=== PATIENT | female | born 1960 | race Caucasian/White ===

== ENCOUNTER → 2016-07-02 | Outpatient (CLI) | payer OTHER | LOC: MRI 08:30 | DX: M54.5 Low back pain (principal); G96.19 Other disorders of meninges, not elsewhere classified ==

== ENCOUNTER → 2016-08-06 | Outpatient (CLI) | payer OTHER ==
[~2016-08-06] VITALS: Ht 162.6 cm; Wt 64.9 kg
[~2016-08-06] MED LIST: ALLEGRA ALLERG180 MG PO; AMITIZA 24 MCG24 MC1 PO; AZELASTINE137 MCG/0. NS; LYRICA150 MG PO; NEXIUM40 MG PO; TRAMADOL 50 MG50 MG PO
[2016-08-06 13:53] VITALS: BP 124/76
== END ==
LOC: PAIN 00:22
DX: M54.89 Other dorsalgia (principal); M79.606 Pain in leg, unspecified; Z87.891 Personal history of nicotine dependence; F32.89 Other specified depressive episodes; Z90.710 Acquired absence of both cervix and uterus; Z98.890 Other specified postprocedural states; Z79.899 Other long term (current) drug therapy

== ENCOUNTER → 2016-08-20 | Outpatient (CLI) | payer OTHER ==
[~2016-08-20] VITALS: Ht 162.6 cm; Wt 64.9 kg
--- NOTE | ~2016-08-20 | HPC ---
Formerly [facility] [place] [address] PAIN MANAGEMENT CONSULTATION Name: KRISHNANJIM Room #: REG JACOBO Hai#: [id number] Admission: 08/20/16 Attend Phys: Keshav Thapa MD Discharge: Date of : 60 Report #: [id number] THIS REPORT FOR: //name// CC: Tom Maradiaga DATE OF SERVICE: 08/20/2016 CHIEF COMPLAINT: Pain in the leg has improved. FOLLOWUP HISTORY: The patient is a 56-year-old female who has been seen in the pain clinic because of lumbar radiculopathy. She underwent an epidural steroid injection in the L5-S1 distribution at the last visit. She has noted pain and discomfort in the L5-S1 distribution, has improved. She feels now that the pain is more in the L4-L5 distribution on the left side. She would like to proceed with another epidural steroid injection. She has had no complication from the procedure. She feels that her pain has at least 50% improved. She still has pain down her legs bilaterally and involvement in her toes. Left side worse than right. PHYSICAL EXAMINATION: Blood pressure 145/82, pulse 72, respiratory rate 20, room air saturation is 100%. Height 5 feet 4 inches, weight 162 pounds, BMI is 24. The patient has pain and discomfort radiating down into the left leg greater than right with numbness and tingling in the L4-L5 distribution involving toes on the left side. IMPRESSION: Gastrointestinal problems, the patient takes Nexium. Sinus problems, the patient takes Holley. RECOMMENDATIONS: We discussed treatment options with the patient. Risks and benefits of an epidural steroid injection were again reviewed. Possible complications of the procedure were discussed. The patient has received greater than 50% improvement after the last injection and would like to proceed with another injection today. By: [id number] Keshav Thapa MD /nt
--- NOTE | ~2016-08-20 | P ---
[facility] [place] [address] PROCEDURE REPORT Name: LUBNA KRISHNANHENRY ESPOSITO Room #: REG JACOBO Valles#: [id number] Admission: 08/20/16 Attend Phys: Keshav Thapa MD Discharge: Date of : 60 Report #: [id number] THIS REPORT FOR: //name// CC: Tom Maradiaga DATE OF SERVICE: 08/20/2016 PROCEDURE NOTE: The patient was placed in the prone position. Fluoroscopy was used to identify the L4-L5 interspace. This area had been sterilely prepped with Betadine and infiltrated with 0.25% bupivacaine. Total of 80 mg Depo-Medrol, 40 mg triamcinolone and 2 mL of 0.25% bupivacaine was injected. The patient's pain decreased from 8 to 0 at the time of discharge. She will follow up in the future as needed. We would like to thank you for letting us participate in her care. We hope she continues to improve. By: [id number] Keshav Thapa MD /nt
[2016-08-20 09:04] VITALS: BP 145/82
== END ==
LOC: PAIN 06:56
DX: M54.16 Radiculopathy, lumbar region (principal); Z87.891 Personal history of nicotine dependence

== ENCOUNTER → 2016-10-15 | Outpatient (CLI) | payer OTHER ==
[~2016-10-15] VITALS: Ht 162.6 cm; Wt 64.4 kg
--- NOTE | ~2016-10-15 | HPC ---
[facility] [place] [address] PAIN MANAGEMENT CONSULTATION Name: KRISHNANJIM Room #: REG JACOBO Hai#: [id number] Admission: 10/15/16 Attend Phys: Keshav Thapa MD Discharge: Date of : 60 Report #: [id number] THIS REPORT FOR: //name// CC: Tom Maradiaga DATE OF SERVICE: 10/15/2016 CHIEF COMPLAINT: Pain has returned in the right leg with some weakness and numbness. FOLLOWUP HISTORY: The patient is a 56-year-old female who has been seen in the pain clinic because of lumbar radiculopathy. She is experiencing more pain in the right leg. Pain radiates down into the posterior portion of her leg/L5-S1 distribution. She notes that she continues to have some discomfort in her legs bilaterally with weakness and numbness in them. She also has some right hip discomfort. She rates her pain as a 7/10. Pain is exacerbated by standing and usually gets progressively worse as the day goes on. It improves somewhat with rest. She has had no complications from the last 2 epidural steroid injections and would like to proceed with another. PHYSICAL EXAMINATION: Blood pressure is 108/73, pulse 66, respiratory rate 14, room air saturations 100%, height 5 feet 4 inches tall, weight 142 pounds, and BMI is 24. The patient has pain and discomfort in the lower portion of her back with pain radiating down into the posterior portion of her right hip, leg, buttocks in the L5/S1 distribution. IMPRESSION: Lumbar radiculopathy. RECOMMENDATIONS: We discussed treatment options with the patient. Risks and benefits of an epidural steroid injection were again reviewed. Possible complications were explained. The patient elects to proceed. PROCEDURE NOTE: The patient was placed in the prone position. Fluoroscopy was used to identify the L5-S1 distribution on the right. A 0.25% bupivacaine was infiltrated into this area. A 17-gauge Tuohy with loss of resistance technique was used to gain access to the epidural space. There was no CSF, heme, or paresthesia. Total of 80 mg Depo-Medrol, 40 mg triamcinolone and 2 mL of 0.25% bupivacaine was injected. The patient tolerated the procedure well. There were no complications. We would like to thank you for letting us participate in her care. We hope she continues to improve. By: [id number] Keshav Thapa MD /issa
[2016-10-15 10:08] VITALS: BP 108/73
== END | disposition home or self-care (01) ==
LOC: PAIN 07:13
DX: M54.16 Radiculopathy, lumbar region (principal); Z87.891 Personal history of nicotine dependence

== ENCOUNTER → 2017-03-25 | Outpatient (CLI) | payer OTHER | LOC: MRI 13:53 | DX: G45.9 Transient cerebral ischemic attack, unspecified (principal); H54.7 Unspecified visual loss ==

== ENCOUNTER → 2017-08-26 | Outpatient (CLI) | payer OTHER | LOC: RAD 10:16 | DX: Z12.31 Encounter for screening mammogram for malignant neoplasm of breast (principal) ==

== ENCOUNTER → 2018-02-17 | Outpatient (CLI) | payer OTHER ==
[~2018-02-17] VITALS: Ht 162.6 cm; Wt 78.5 kg
[~2018-02-17] MED LIST changes: +CYMBALTA60 MG PO; +LIVALO2 MG PO; +TRAZODONE HCL50 MG PO
[2018-02-17 10:03] VITALS: BP 123/82
== END ==
LOC: PAIN 09:33 → CAT 09:33 → PAIN 14:25
DX: R10.2 Pelvic and perineal pain (principal); M54.5 Low back pain; R14.0 Abdominal distension (gaseous); G89.29 Other chronic pain; M79.604 Pain in right leg; M79.605 Pain in left leg; R53.1 Weakness; Z79.899 Other long term (current) drug therapy

== ENCOUNTER → 2018-03-24 | Outpatient (CLI) | payer OTHER ==
[~2018-03-24] VITALS: Ht 162.6 cm; Wt 80.9 kg
--- NOTE | ~2018-03-24 | HPC ---
[facility] [place] [address] PAIN MANAGEMENT CONSULTATION Name: JMI KRISHNAN Room #: REG JACOBO AbebaJakiMounika#: [id number] Admission: 03/24/18 Attend Phys: Keshav Thapa MD Discharge: Date of : 60 Report #: [id number] THIS REPORT FOR: //name// CC: Jayshree Thapa DATE OF SERVICE: 03/24/2018 CHIEF COMPLAINT: Here for another epidural injection. I have had pain going down into my leg, on the left side. HISTORY: The patient is a 57-year-old female who has been seen in the pain clinic because of lumbar radiculopathy. She has undergone epidural steroid injections and gleaned benefits from these. She has again noticed some pain in her left leg with numbness, weakness and sensory changes. She has undergone epidural steroid injections and gleaned greater than 50% improvement from them. She rates her pain today as an 8/10. She does quite a bit of walking. At the end of the day she experiences quite a bit of pain and discomfort. Pain is not so problematic when she is sedentary. Notes that prolonged sitting can be exacerbating to the pain as well. She has tried Lyrica, felt that medication was "rough on me." Has tried Cymbalta and gabapentin. ALLERGIES: CODEINE, HYDROCODONE, OXYCODONE. PAIN CLINIC ASSESSMENT/PQRS: 1. The patient is not being treated for osteoarthritis or rheumatoid arthritis. 2. Height 5 feet 4 inches, weight 178 pounds, BMI is 30. 3. Vital signs: Blood pressure 113/71, pulse 74, respiratory rate 18, room air saturation 99%. 4. Pain intensity 10/14. 5. Fall risk. The patient has not fallen in the last 3 months. 6. Blood thinner. The patient is not on a blood thinning medication. 7. Hypertension. The patient has not been treated for hypertension. 8. Opioids greater than 6 weeks. The patient is not being treated with opioid medication on a regular basis. 9. Risk assessment tool for opioid flow. 10. Functional assessment . 11. Recreational drug use. The patient denies use of recreational drugs. 12. Tobacco: The patient is a former smoker. 13. Alcohol: The patient denies frequent use of alcoholic beverages. PHYSICAL EXAMINATION: GENERAL: The patient is a well-developed, well-nourished white female. Appears her stated age. She is alert and oriented x3. Her affect is appropriate. Speech is slow. HEAD, EYES, EARS, NOSE, AND THROAT: Normocephalic, atraumatic. Extraocular eye [address] [address] PAIN MANAGEMENT CONSULTATION Name: JIM KRISHNAN [facility] Room #: REG [facility] M.R.#: [id number] Admission: 03/24/18 Attend Phys: Keshav Thapa MD Discharge: Date of : 60 Report #: [id number] muscles intact. Sclerae nonicteric. NECK: Without adenopathy or JVD. HEART: Regular rate. S1, S2. ABDOMEN: Nontender. Bowel sounds present. CHEST: Clear to auscultation. EXTREMITIES: Upper extremity muscle straight judged to be 5/5 in the major muscle groups in the upper extremity. The patient has some pain and discomfort in the lower portion of her back. The patient without significant scoliosis, kyphosis or lordosis. Has some pain and discomfort that is radiating down the posterior portion of her left leg in the L5-S1 dermatomal distribution. IMPRESSION: 1. Gastroesophageal reflux history. 2. Depression. 3. Allergies. RECOMMENDATIONS: We discussed treatment options with the patient. Risks and benefits of an epidural steroid injection were again reviewed. They include but are not limited to infection, worsening pain, no improvement in pain, bleeding, nerve damage, paralysis and the patient elects to proceed. PROCEDURE NOTE: The patient was taken to the procedure area. She was assisted in getting on the examination table. Her back was sterilely prepped with a Betadine solution. Anterior, posterior viewing using fluoroscopy were implemented. The patient's back was sterilely prepped in the L5-S1 dermatomal distribution. A midline left median approach was undertaken. A total of 80 mg Depo-Medrol, 40 mg of triamcinolone and 2 mL of 0.25% bupivacaine was injected. The patient tolerated the procedure well. There were no complications. The patient continues to have pain and discomfort in the low back area. She has not taken a nonsteroidal anti-inflammatory medication because of the gastroesophageal problems. She has tried ibuprofen, Aleve, aspirin, and still has problems with these medications because they upset her GI tract. The patient will be given a script for Celebrex. Hopefully, she will find these medications helpful, would help combat the chronic pain and discomfort that she is having so she does not have to use opioid medications. We would like to thank you for letting us to participate in her care. We hope she continues to improve. By: [id number] Keshav Thapa MD /FELICIA
[2018-03-24 12:53] VITALS: BP 113/71
--- NOTE | 2018-03-24 13:01 | NUR ---
Pain Clinic Assessment: 1. History of Osteoarthritis: NONE History of Rheumatoid Arthritis: NONE 2. Height: 5 ft. 4 in. 162.6 cm. Weight: 178.4 lb. oz. 80.922 kg. Patient's BMI: 30.6 3. Vital Signs: BP: 113/71 Pulse: 74 Resp: 18 Temp: 02 Sat: 99 ECG Mon: 4. Pain Intensity: 8 5. Fall Risk: Dizziness: N Needs help standing or walking: N Fallen in the last 3 months: N Fall risk comments: 6. Patient on Blood Thinner: None 7. History of Hypertension: N 8. Opioid Therapy greater than 6 weeks: N Opiate Contract Signed: 9. Risk Assessment Tool Provided: 10. Functional Assessment Tool: 49 11. Recreational Drug Use: Never Drug Type: Tobacco Use: Former Smoker Tobacco Type: Amount or Packs/day: How Many Years: Alcohol Use: No Frequency: Quant:
== END | disposition home or self-care (01) ==
LOC: PAIN 07:04
DX: M54.16 Radiculopathy, lumbar region (principal); G89.29 Other chronic pain; Z87.891 Personal history of nicotine dependence; Z88.8 Allergy status to other drugs, medicaments and biological substances; Z79.899 Other long term (current) drug therapy

== ENCOUNTER → 2018-04-17 | Outpatient (CLI) | payer OTHER ==
[~2018-04-17] VITALS: Ht 162.6 cm; Wt 77.1 kg
[~2018-04-17] MED LIST changes: +GENTEAL TEARS 015 ML OPHTHALMIC; +HAIR, SKIN & N1 EAC2 PO; +MAGOX 400400 MG PO; +POTASSIUM CITR500 GM PO
--- NOTE | 2018-04-18 17:12 | PATH ---
[facility] [address] [place] [address] PATHOLOGY RPT PROCEDURE Name: KRISHNANLEIGH ANN Room #: REG JACOBO Ebonie.#: [id number] Admission: 04/17/18 Date of : 60 Discharge: Report #: [id number] Path Case #: [id number] [facility] Accession Number: [id number] . 01 Material submitted: . PART A: SMALL BOWEL BIOPSIES R/O CELIAC PART B: RANDOM GASTRIC BIOPSIES R/O H PYLORI PART C: RANDOM RIGHT COLON BIOPSIES R/O MICROSCOPIC AND INFECTIOUS COLITIS PART D: RANDOM LEFT COLON BIOPSIES R/O MICROSCOPIC AND INFECTION COLITIS . 01 Clinical history: . Pre-OP DX: Abdominal pain, diarrhea, bloating Post-OP DX: Nodular gastric mucosa, diverticulosis . 02 Diagnosis: A. Small bowel mucosa, rule out celiac disease, endoscopic biopsy: - Mild nonspecific acute and chronic inflammation. - Negative for villous blunting or increase in intraepithelial lymphocytes. . B. Gastric mucosa, random gastric rule out H. pylori, endoscopic biopsy: - Mild reactive gastropathy. - Negative for intestinal metaplasia or atrophy. - Negative for Helicobacter pylori (properly controlled immunohistochemical stain performed). . C. Large intestine mucosa, right colon rule out microscopic colitis, endoscopic biopsy: - No significant diagnostic abnormalities present. - Negative for active colitis, microscopic colitis, or dysplasia. . D. Large intestine mucosa, left colon rule out microscopic colitis, endoscopic biopsy: - No significant diagnostic abnormalities present. - Negative for active colitis, microscopic colitis, or dysplasia. . 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 02 Comment: Parts C and D: Sections of colon biopsy tissues show crypts at regular intervals and no increase in cellularity of lamina propria. There are no granulomas. The collagen layer underneath the epithelium is not thickened. There is no distortion in crypt architecture as well. There is no evidence of dysplasia. 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 02 [place] [address] PATHOLOGY RPT PROCEDURE Name: LEIGH ANN KRISHNAN VAIBHAV Room #: REG JACOBO Valles#: [id number] Admission: 04/17/18 Date of : 60 Discharge: Report #: [id number] Path Case #: [id number] Electronically signed: . Celi Tran MD, Pathologist NPI- [id number] . 01 Gross description: . A. Received in formalin labeled "Krishnan, Leigh Ann, small bowel biopsies, rule out celiac," are 6 segments of ryan soft tissue measuring 1.0 x 0.6 x 0.2 cm in aggregate dimensions and ranging from 0.3 to 0.4 cm in maximum dimension. The specimen is submitted entirely in cassette A1. . B. Received in formalin labeled "Krishnan, Leigh Ann, random gastric biopsies, rule out H. pylori," are 3 segments of ryan soft tissue measuring 1.1 x 0.5 x 0.3 cm in aggregate dimensions and ranging from 0.3 to 0.6 cm in maximum dimension. The specimen is submitted entirely in cassette B1. . C. Received in formalin labeled "Krishnan, Leigh Ann, random R colon biopsies, rule out microscopic colitis and infectious colitis," are 7 segments of ryan soft tissue measuring 1.5 x 0.9 x 0.2 cm in aggregate dimensions and ranging from 0.2 to 0.5 cm in maximum dimension. The specimen is submitted entirely in cassette C1. . D. Received in formalin labeled "Krishnan, Leigh Ann, random L colon biopsies, rule out microscopic colitis and infectious colitis," are 7 segments of ryan soft tissue measuring 1.8 x 0.8 x 0.2 cm in aggregate dimensions and ranging from 0.3 to 0.6 cm in maximum dimension. The specimen is submitted entirely in cassette D1. (TSD; 04/17/2018) TOB/TOB . 02 Pathologist provided ICD-10: K52.9, K31.9, R10.9, R19.7, R14.0 . 02 CPT . 477334, 040591, [id number], 369270 Specimen Comment: A courtesy copy of this report has been sent to Specimen Comment: [phone], . Specimen Comment: Report sent to / DR NARANJO Performed at: [address], [place], [place] [id number] MD Alexander Goodwin MD Phone: [phone] Performed at: [address] [id number] MD Celi Tran MD Phone: [phone]
== END | disposition home or self-care (01) ==
LOC: GI 08:10
DX: K52.9 Noninfective gastroenteritis and colitis, unspecified (principal); K57.30 Diverticulosis of large intestine without perforation or abscess without bleeding; K31.89 Other diseases of stomach and duodenum; E78.5 Hyperlipidemia, unspecified; F17.210 Nicotine dependence, cigarettes, uncomplicated; K21.9 Gastro-esophageal reflux disease without esophagitis; F32.9 Major depressive disorder, single episode, unspecified; Z90.49 Acquired absence of other specified parts of digestive tract; Z90.710 Acquired absence of both cervix and uterus; Z98.890 Other specified postprocedural states; Z86.73 Personal history of transient ischemic attack (TIA), and cerebral infarction without residual deficits
CPT/HCPCS: 62110; 62900

== ENCOUNTER → 2018-05-12 | Outpatient (CLI) | payer OTHER | LOC: CAT 04-28 11:47 | DX: I67.1 Cerebral aneurysm, nonruptured (principal) ==

== ENCOUNTER → 2018-08-04 | Outpatient (CLI) | payer OTHER ==
[~2018-08-04] VITALS: Ht 162.6 cm; Wt 79.7 kg
[~2018-08-04] MED LIST changes: +ESZOPICLONE2 MG PO; +PHENTERMINE H37.5 M1 PO
[2018-08-04 10:26] VITALS: BP 141/86
--- NOTE | 2018-08-04 10:42 | NUR ---
Pain Clinic Assessment: 1. History of Osteoarthritis: NONE History of Rheumatoid Arthritis: NONE 2. Height: 5 ft. 4 in. 162.6 cm. Weight: 175.8 lb. oz. 79.742 kg. Patient's BMI: 30.2 3. Vital Signs: BP: 141/86 Pulse: 74 Resp: 16 Temp: 02 Sat: 100 ECG Mon: 4. Pain Intensity: 8 5. Fall Risk: Dizziness: N Needs help standing or walking: N Fallen in the last 3 months: N Fall risk comments: 6. Patient on Blood Thinner: None 7. History of Hypertension: N 8. Opioid Therapy greater than 6 weeks: N Opiate Contract Signed: 9. Risk Assessment Tool Provided: low-1 10. Functional Assessment Tool: 11. Recreational Drug Use: Never Drug Type: Tobacco Use: Former Smoker Tobacco Type: Amount or Packs/day: How Many Years: Alcohol Use: Yes Frequency: Quant:
--- NOTE | 2018-08-09 08:16 | HPC ---
[facility] [address] [place] [address] PAIN MANAGEMENT CONSULTATION Name: JIM KRISHNAN Room #: REG JACOBO Hai#: [id number] Admission: 08/04/18 ������������������ Attend Phys: Keshav Thapa MD Discharge: ������������������ Date of : 60 Report #: [id number] THIS REPORT FOR: //name// CC: Jayshree Thapa DATE OF SERVICE: 08/04/2018 CHIEF COMPLAINT: Return of back pain which is good for a number of months. HISTORY: The patient is a 58-year-old female who has been seen in the pain clinic because of lumbar radiculopathy. She has undergone epidural steroid injections and gleaned benefits from these. She is experiencing pain, which was improved over the last 5-6 months. She has noticed a worsening of pain, which has recurred. It is radiating down into her leg. She rates it as 8/10 at this juncture. It involves both legs. Left knee is problematic, has some discomfort in the area of the hips. This is in the L5-S1 dermatomal distribution with sensory changes, numbness, tingling and decreased muscle strength. Notes that the pain is worse with prolonged standing as necessary. Notes that the pain improves with rest. She has tried heat as well as lying down. She does have quite a bit of standing in her job. She has tried other medications to help with the pain, Lyrica was described as "rough on me." She has also tried Cymbalta and gabapentin. She feels that the injection was beneficial and would like to proceed with another epidural injection in that she has gleaned significant amounts of pain relief after the last injection. ALLERGIES: CODEINE, HYDROCODONE, OXYCODONE. PAIN CLINIC ASSESSMENT/PQRS: 1. The patient is not being treated for osteoarthritis or rheumatoid arthritis. 2. Height 5 feet 4 inches, weight 175 pounds, BMI is 30.2. 3. Vital Signs: Blood pressure 141/86, pulse 74, respiratory rate 16, room air saturation 100%. 4. Pain intensity 10/14. 5. Fall history: The patient has not fallen in the last 3 months. 6. Blood thinner. The patient is not on a blood thinning medication. 7. Hypertension. The patient is not being treated for hypertension. 8. Opioids greater than 6 weeks. The patient is not on current regimen of opioids. 9. Risk assessment tool, low for opioid use. 10. Functional assessment tool 42/70. 11. Recreational drug use. The patient denies. 12. Tobacco: The patient denies use of tobacco. She is a former smoker. 13. Alcohol: The patient occasionally drinks alcoholic beverages. [facility] [address] [place] [address] PAIN MANAGEMENT CONSULTATION Name: JIM KRISHNAN Room #: REG JACOBO Valles#: [id number] Admission: 08/04/18 ������������������ Attend Phys: Keshav Thapa MD Discharge: ������������������ Date of : 60 Report #: [id number] PHYSICAL EXAMINATION: GENERAL: The patient is a well-developed, well-nourished white female, appears her stated age. She is alert and oriented x 3. Her affect is appropriate. Speech is fluent. HEENT: Normocephalic, atraumatic. Extraocular eye muscles intact. Sclerae nonicteric. Mucous membranes are moist. NECK: Without adenopathy or JVD. HEART: Regular rate. S1, S2. ABDOMEN: Nontender. Bowel sounds present. CHEST: Clear to auscultation. EXTREMITIES: Upper extremity muscle strength is judged to be 5/5 for the major muscle groups in the upper extremity. The patient without significant scoliosis, kyphosis or lordosis. Has pain and discomfort, which is radiating down the posterior portion of her left leg and down into the right leg with numbness, tingling and sensory changes at the L5-S1 dermatomal distribution. IMPRESSION: 1. History of gastroesophageal reflux. 2. Depression. RECOMMENDATIONS: We discussed treatment options with the patient. The patient was provided with an epidural steroid injection in March. Things have worked out reasonably well. Over the last few weeks, she has noticed an increase in her pain. She has made it more difficult for her to perform activities of daily living such as working and the patient would like to proceed with another injection. She has had no complications. She has had no back surgeries. She has returned with a hope of undergoing an epidural steroid injection. We explained to the patient that we needed to have precertification prior to an injection. She acknowledges understanding the requirement for precertification. She will return to the pain clinic at which time she will undergo an epidural steroid injection after she has been provided precertification to do so. We would like to thank you for letting us participate in her care. We hope she continues to improve. ��������������������������������������������� <ELECTRONICALLY SIGNED> ���������������������������������������� By: Keshav Thapa MD ��������������������������������������������� 08/09/18 0816 [id number] [id number] Keshav Thapa MD /issa
== END ==
LOC: PAIN 06:49
DX: M54.5 Low back pain (principal); K21.9 Gastro-esophageal reflux disease without esophagitis; F32.9 Major depressive disorder, single episode, unspecified

== ENCOUNTER → 2018-09-15 | Outpatient (CLI) | payer OTHER ==
[~2018-09-15] VITALS: Ht 162.6 cm; Wt 83.4 kg
[~2018-09-15] MED LIST changes: +BUPROPION HCL150 M1 PO; +CELEBREX 200 M200 M1 PO
--- NOTE | ~2018-09-15 | HPC ---
[facility] [address] [place] [address] PAIN MANAGEMENT CONSULTATION Name: JIM KRISHNAN Room #: REG JACOBO Hai#: [id number] Admission: 09/15/18 ������������������ Attend Phys: Keshav Thapa MD Discharge: ������������������ Date of : 60 Report #: [id number] THIS REPORT FOR: //name// CC: Jayshree Thapa DATE OF SERVICE: 09/15/2018 CHIEF COMPLAINT: Here for an epidural injection. HISTORY: The patient is a 58-year-old female who has been followed in the pain clinic because of lumbar radiculopathy. Epidural steroid injections have been beneficial in the past. At this juncture, she has noticed that her pain has increased. She has returned today with the hopes of undergoing an epidural steroid injection to help decrease her pain. She rates it as a 6/10. Also, has some pain in her left knee. She had an injection in this about 2 weeks ago and has noted some improvement. Overall, things are going reasonably well. She would like to proceed with another epidural steroid injection. Notes that her pain can be problematic because of the prolonged amount of standing, which she does on her job. ALLERGIES: CODEINE, HYDROCODONE, OXYCODONE. PAIN CLINIC ASSESSMENT AND PQRS. 1. The patient is not being treated for osteoarthritis or rheumatoid arthritis. 2. Height 5 feet 4 inches, weight 183 pounds, BMI is 31.5. 3. Vital signs: Blood pressure 150/88, pulse 67, respiratory rate 16, room air saturation 100%. 4. Pain intensity 10. 5. Fall history: The patient has not fallen in the last 3 months. 6. Blood thinner. The patient is not on a blood thinning medication. 7. Hypertension. The patient is not being treated for hypertension. 8. Opioids greater than 6 weeks. 9. Risk assessment tool, low for opioid use. 10. Functional assessment tool 42/70. 11. Recreational drug use. The patient denies. 12. Tobacco: The patient is a former smoker. 13. Alcohol. The patient drinks 2 alcoholic beverages weekly. PHYSICAL EXAMINATION: GENERAL: The patient is a well-developed, well-nourished white female. Appears her stated age. She is alert and oriented x 3. Affect is appropriate. Speech is fluent. HEENT: Normocephalic, atraumatic. Extraocular eye muscles intact. Sclerae nonicteric. Mucous membranes are moist. NECK: Without adenopathy or JVD. [facility] [address] [place] [address] PAIN MANAGEMENT CONSULTATION Name: JIM KRISHNAN [facility] Room #: REG [facility]#: [id number] Admission: 09/15/18 ������������������ Attend Phys: Keshav Thapa MD Discharge: ������������������ Date of : 60 Report #: [id number] LUNGS: Clear to auscultation. EXTREMITIES: Upper extremity muscle strength judged to be 5/5 for the major muscle groups in the upper extremity. The patient is without significant scoliosis, kyphosis, or lordosis. The patient has some discomfort with pain that is radiating down the posterior portion of her leg in the L5-S1 distribution. IMPRESSION: 1. History of gastroesophageal reflux. 2. Depression. RECOMMENDATIONS: We discussed treatment options with the patient. At this juncture, she would like to proceed with an epidural injection. Risks and benefits of the procedure were discussed. They include but are not limited to infection, increased muscle soreness, headache, bleeding, worsening of pain, spinal headache. The patient is going to have a pool green party at her house. She asks whether or not she should get in the pool. We have advised her not to get in the pool today. There is a possibility of infection. She would like to proceed with an injection. The patient was taken to the procedure area. She was then assisted in getting on the examination table. Her back was sterilely prepped with a Betadine solution. Fluoroscopy using anterior, posterior as well as lateral viewing were implemented. A 25-gauge needle was then used to infiltrate the L5-S1 area. This area was numbed. A 17-gauge Tuohy with loss of resistance technique was used to gain access to the epidural space using a left paramedian approach. Aspiration was negative. Total of 80 mg Depo-Medrol, 40 mg triamcinolone and 2 mL of 0.25% bupivacaine was injected. A total of 7 seconds fluoroscopy time was used. The patient's pain decreased from 6 to 0 at the time of discharge. She will follow up in the future as needed. We would like to thank you for letting us participate in her care. We hope she continues to improve. ��������������������������������������������� ���������������������������������������� By: ��������������������������������������������� [id number] eKshav Thapa MD /issa
[2018-09-15 10:42] VITALS: BP 150/88
--- NOTE | 2018-09-15 10:58 | NUR ---
Pain Clinic Assessment: 1. History of Osteoarthritis: NONE History of Rheumatoid Arthritis: NONE 2. Height: 5 ft. 4 in. 162.6 cm. Weight: 183.8 lb. oz. 83.371 kg. Patient's BMI: 31.5 3. Vital Signs: BP: 150/88 Pulse: 67 Resp: 16 Temp: 02 Sat: 100 ECG Mon: 4. Pain Intensity: 6 5. Fall Risk: Dizziness: N Needs help standing or walking: N Fallen in the last 3 months: N Fall risk comments: 6. Patient on Blood Thinner: None 7. History of Hypertension: N 8. Opioid Therapy greater than 6 weeks: N Opiate Contract Signed: 9. Risk Assessment Tool Provided: low-1 10. Functional Assessment Tool: 11. Recreational Drug Use: Never Drug Type: Tobacco Use: Former Smoker Tobacco Type: Amount or Packs/day: How Many Years: Alcohol Use: Yes Frequency: Weekly Quant: 2
== END | disposition home or self-care (01) ==
LOC: PAIN 06:43
DX: M54.16 Radiculopathy, lumbar region (principal); G89.29 Other chronic pain; K21.9 Gastro-esophageal reflux disease without esophagitis; F32.9 Major depressive disorder, single episode, unspecified; Z87.891 Personal history of nicotine dependence; Z88.6 Allergy status to analgesic agent; Z88.8 Allergy status to other drugs, medicaments and biological substances; Z98.890 Other specified postprocedural states; Z79.899 Other long term (current) drug therapy

== ENCOUNTER → 2018-12-01 | Outpatient (CLI) | payer OTHER ==
[~2018-12-01] VITALS: Ht 162.6 cm; Wt 83.6 kg
[2018-12-01 11:00] VITALS: BP 163/79
--- NOTE | 2018-12-01 11:05 | NUR ---
Pain Clinic Assessment: 1. History of Osteoarthritis: NONE History of Rheumatoid Arthritis: NONE 2. Height: 5 ft. 4 in. 162.6 cm. Weight: 184.4 lb. oz. 83.643 kg. Patient's BMI: 31.6 3. Vital Signs: BP: 163/79 Pulse: 82 Resp: 18 Temp: 02 Sat: 99 ECG Mon: 4. Pain Intensity: 10 5. Fall Risk: Dizziness: N Needs help standing or walking: N Fallen in the last 3 months: N Fall risk comments: 6. Patient on Blood Thinner: None 7. History of Hypertension: N 8. Opioid Therapy greater than 6 weeks: N Opiate Contract Signed: 9. Risk Assessment Tool Provided: low-1 10. Functional Assessment Tool: 42/ 11. Recreational Drug Use: Never Drug Type: Tobacco Use: Former Smoker Tobacco Type: Amount or Packs/day: How Many Years: Alcohol Use: Yes Frequency: Monthly Quant: 2
--- NOTE | 2018-12-15 08:26 | HPC ---
[facility] [place] [address] PAIN MANAGEMENT CONSULTATION Name: JIM KRISHNAN Room #: REG JACOBO Hai#: [id number] Admission: 12/01/18 Attend Phys: Keshav Thapa MD Discharge: Date of : 60 Report #: [id number] THIS REPORT FOR: //name// CC: Jayshree Thapa DATE OF SERVICE: 12/01/2018 CHIEF COMPLAINT: "The last epidural was helpful, but now the pain has returned over the last few weeks. I would like to get another injection." HISTORY: The patient is a 58-year-old female who has been followed in the pain clinic because of lumbar radiculopathy. Epidural injections in the past have proven beneficial. She has noted over the last few weeks some increased pain and discomfort. It involves the lower portion of her back and radiates down into her legs with numbness and tingling. Pain has become quite problematic at this juncture. She rates it as a 10/10. She notes that the pain is exacerbated when she is standing. She does do quite a bit of standing at her job. Notes that the pain improves with rest, use of heat as well as when lying down. Medications could be beneficial as well. ALLERGIES: CODEINE, HYDROCODONE/OXYCODONE. CURRENT MEDICATIONS: Bupropion SR150 mg, Celebrex 200 mg 2 times daily, eszopiclone 2 mg at bedtime, phentermine 37.5 mg, ophthalmic drops b.i.d., magnesium 400 mg, potassium 500 granules, Cymbalta 60 mg, azelastine 137 mcg spray nasal p.r.n. allergies, esomeprazole 40 mg/Nexium 40 mg, Holley 180 mg and tramadol 50 mg p.r.n. PAIN CLINIC ASSESSMENT AND PQRS: 1. The patient is not being treated for osteoarthritis or rheumatoid arthritis. 2. Height 5 feet 4 inches, weight 184 pounds, BMI is 31.6. 3. Vital signs: Blood pressure 163/79, pulse 82, respiratory rate 18, room air saturation 99. 4. Pain intensity 10/10. 5. Fall history: The patient has not fallen in the last 3 months. 6. Blood thinner. The patient is not on a blood thinning medication. 7. Hypertension. The patient is not being treated for hypertension. 8. Opioids greater than 6 weeks. The patient is not on opioid regimen. 9. Risk assessment tool, low for opioids. 10. Functional assessment tool 42/70. 11. Recreational drug use: The patient denies. 12. Tobacco: The patient is a former smoker. 13. Alcohol: The patient occasionally drinks about 2 alcoholic beverages monthly. [address] [address] PAIN MANAGEMENT CONSULTATION Name: JIM KRISHNAN [facility] [id number] Admission: 12/01/18 Attend Phys: Keshav Thapa MD Discharge: Date of : 60 Report #: [id number] PHYSICAL EXAMINATION: GENERAL: The patient is a well-developed, well-nourished white female. Appears her stated age. She is alert and oriented x 3. Her affect is appropriate. Speech is fluent. HEENT: Normocephalic, atraumatic. Extraocular eye muscles intact. Sclerae nonicteric. Mucous membranes are moist. NECK: Without adenopathy. LUNGS: Clear to auscultation. EXTREMITIES: Upper extremity muscle strength judged to be 5/5 for the major muscle groups in the upper extremity. The patient is without significant scoliosis, kyphosis or lordosis. The patient has some discomfort and pain that radiates down the posterior portion of her legs and the left and right in the L5-S1 dermatomal distribution. IMPRESSION: 1. History of gastroesophageal reflux. 2. Depression. 3. History of lumbar radiculopathy. RECOMMENDATIONS: We discussed treatment options with the patient. Risks and benefits of an epidural steroid injection were again reviewed. The patient has had this before. She is aware that the possible complication of the procedure could include but are not limited to infection, worsening of pain, no improvement in pain, bleeding, spinal headache, muscle soreness and she elects to proceed. PROCEDURE NOTE: The patient was taken to the procedure area. She was then assisted in getting on the examination table. She was then placed and assisted in getting the appropriate position. Her back was sterilely prepped with a Betadine solution. A pillow had been placed under the abdomen to bolster and improve positioning. Fluoroscopy using anterior and posterior views were used to identify the appropriate L5-S1 area. There was no CSF, heme or paresthesia. Total of 80 mg Depo-Medrol, 40 mg triamcinolone and 2 mL of 0.25% bupivacaine was injected after the patient's back had been sterilely prepped and anesthetized. She tolerated the procedure well. There were no complications. She returned to the pain clinic. She was returned to the recovery area. She stayed for an appropriate amount of time. Total of 9 seconds fluoroscopy time was present was used. The patient's pain decreased to 0 at the time of discharge. [address] [address] PAIN MANAGEMENT CONSULTATION Name: JIM KRISHNAN VAIB[facility] Room #: REG JACOBO Valles#: [id number] Admission: 12/01/18 Attend Phys: Keshav Thapa MD Discharge: Date of : 60 Report #: [id number] We would like to thank you for letting us participate in her care. We hope she continues to improve. <ELECTRONICALLY SIGNED> By: Keshav Thapa MD 12/15/18 0826 [id number] Keshav Thapa MD /nt
== END | disposition home or self-care (01) ==
LOC: PAIN 06:55
DX: M54.16 Radiculopathy, lumbar region (principal); G89.29 Other chronic pain; F32.9 Major depressive disorder, single episode, unspecified; K21.9 Gastro-esophageal reflux disease without esophagitis; Z88.8 Allergy status to other drugs, medicaments and biological substances; Z79.899 Other long term (current) drug therapy; Z98.890 Other specified postprocedural states; Z87.891 Personal history of nicotine dependence

== ENCOUNTER → 2019-01-19 | Outpatient (CLI) | payer OTHER ==
[~2019-01-19] VITALS: Ht 162.6 cm; Wt 84.9 kg
[2019-01-19 10:04] VITALS: BP 144/84
--- NOTE | 2019-01-19 10:22 | NUR ---
Pain Clinic Assessment: 1. History of Osteoarthritis: NONE History of Rheumatoid Arthritis: NONE 2. Height: 5 ft. 4 in. 162.6 cm. Weight: 187.2 lb. oz. 84.913 kg. Patient's BMI: 32.1 3. Vital Signs: BP: 144/84 Pulse: 68 Resp: 16 Temp: 02 Sat: 98 ECG Mon: 4. Pain Intensity: 6 5. Fall Risk: Dizziness: N Needs help standing or walking: N Fallen in the last 3 months: N Fall risk comments: 6. Patient on Blood Thinner: None 7. History of Hypertension: N 8. Opioid Therapy greater than 6 weeks: N Opiate Contract Signed: 9. Risk Assessment Tool Provided: low-1 10. Functional Assessment Tool: 42/ 11. Recreational Drug Use: Never Drug Type: Tobacco Use: Former Smoker Tobacco Type: Amount or Packs/day: How Many Years: Alcohol Use: Yes Frequency: Quant:
--- NOTE | 2019-01-26 15:38 | HPC ---
[facility] [place] [address] PAIN MANAGEMENT CONSULTATION Name: JIM KRISHNAN Room #: REG JACOBO Hai#: [id number] Admission: 01/19/19 Attend Phys: Keshav Thapa MD Discharge: Date of : 60 Report #: [id number] THIS REPORT FOR: //name// CC: JABIER Purdy Dr. DATE OF SERVICE: 01/19/2019 PRIMARY CARE PHYSICIAN: Dr. Tom Hinds and JABIER Reddy CHIEF COMPLAINT: Return of low back pain down to the left buttocks and left thigh. HISTORY: The patient is a 58-year-old female who has been seen in the pain clinic because of lumbar radiculopathy. She has undergone epidural steroid injections in the past. She has noted over the last few weeks some worsening of her pain. It has begun to "wear on her." It becomes more problematic as the day progresses. Notes that the pain involves in the lower portion of her back. It radiates down in her left buttocks down into the left thigh and the patient has been experiencing some burning sensation. There is a component of tingling. She rates it as a 6/10. This is similar to that she has experienced in the past. Injections in the past have been helpful. She has returned today with the desire to undergo an epidural steroid injection to help quell her pain and discomfort. ALLERGIES: She has had some additional stress. Her has had bypass surgery. He is convalescing reasonably well. ALLERGIES: CODEINE, HYDROCODONE/OXYCODONE. CURRENT MEDICATIONS: Bupropion SR 150 mg, Celebrex 200 mg 2 times daily, eszopiclone 2 mg at bedtime, phentermine 37.5 mg ophthalmic drops b.i.d., magnesium 400 mg, potassium 500 granules, Cymbalta 60 mg, azelastine 137 mcg spray nasal, esomeprazole 40 mg, Nexium 40 mg, Holley 180 mg, and tramadol 50 mg. PAIN CLINIC ASSESSMENT/PQRS: 1. The patient is not being treated for osteoarthritis or rheumatoid arthritis. 2. Height 5 feet 4 inches, weight 187 pounds, BMI is 32.1. 3. Vital signs: Blood pressure 144/84, pulse 68, respiratory rate 16, room air saturation 98%. 4. Pain intensity 6/10. 5. Fall history: The patient has not fallen in the last 3 months. 6. Blood thinner. The patient is not on [place] [address] PAIN MANAGEMENT CONSULTATION Name: JIM KRISHNAN [facility] Room #: REG JACOBO Valles#: [id number] Admission: 01/19/19 Attend Phys: Keshav Thapa MD Discharge: Date of : 60 Report #: [id number] 7. Hypertension. The patient is not being treated for hypertension. 8. Opioids greater than 6 weeks. The patient is not on a chronic opioid regimen. 9. Risk assessment tool, low for opioid use. 10. Functional assessment tool 42/. 11. Recreational drug use: The patient denies. 12. Tobacco: The patient is a former smoker. 13. Alcohol: The patient occasionally drinks alcoholic beverages. PHYSICAL EXAMINATION: GENERAL: The patient is a well-developed, well-nourished white female. Appears her stated age. She is alert and oriented x 3. Her affect is appropriate. Speech is fluent. HEENT: Normocephalic, atraumatic. Extraocular eye muscles intact. Sclerae nonicteric. Mucous membranes are moist. NECK: Without adenopathy or JVD. HEART: Regular rate. EXTREMITIES: Upper extremity muscle strength judged to be 5/5 for the major muscle groups in the upper extremities. The patient without significant scoliosis, kyphosis or lordosis. The patient has pain and discomfort in the lower portion of her back. Pain radiates down into the left leg as well as in the right leg. More problematic on the left side than the right. There is numbness, weakness and tingling in the associated L5-S1 dermatomal distributions. IMPRESSION: 1. Lumbar radiculopathy with L5-S1 dermatomal distribution, more problematic on the left, improved with epidural steroid injections in the past. 2. Depression. 3. History of lumbar radiculopathy. 4. History of gastroesophageal reflux. RECOMMENDATIONS: We discussed treatment options with the patient. Risks and benefits of an epidural steroid injection were discussed. They include but are not limited to infection, worsening pain, no improvement in pain and the patient elects to proceed. PROCEDURE NOTE: The patient was taken to the procedure area. She was then assisted in getting on the examination table. Her back was sterilely prepped with a Betadine solution. A 0.25% bupivacaine was infiltrated. This area was numbed. A 17-gauge Tuohy with loss of resistance technique was used to gain access at the L5-S1 area. There was no CSF, heme or paresthesia. A total of 80 mg Depo-Medrol, 40 mg triamcinolone and 2 mL of 0.25% bupivacaine was injected. The patient tolerated the procedure well. There were no complications. [facility] [address] [place] [address] PAIN MANAGEMENT CONSULTATION Name: JIM KRISHNAN VAIB[facility] Room #: REG [facility].#: [id number] Admission: 01/19/19 Attend Phys: Keshav Thapa MD Discharge: Date of : 60 Report #: [id number] We would like to thank you for letting us participate in her care. We hope she continues to improve. <ELECTRONICALLY SIGNED> By: Keshav Thapa MD 01/26/19 1538 [id number] Keshav Thapa MD /PMT
== END | disposition home or self-care (01) ==
LOC: PAIN 06:47
DX: M54.16 Radiculopathy, lumbar region (principal); F32.9 Major depressive disorder, single episode, unspecified; I10 Essential (primary) hypertension; Z88.8 Allergy status to other drugs, medicaments and biological substances; Z79.899 Other long term (current) drug therapy; Z87.891 Personal history of nicotine dependence

== ENCOUNTER → 2019-02-16 | Outpatient (CLI) | payer OTHER | LOC: RAD 11:13 | DX: Z12.31 Encounter for screening mammogram for malignant neoplasm of breast (principal); N60.01 Solitary cyst of right breast; N60.02 Solitary cyst of left breast ==

== ENCOUNTER → 2019-03-30 | Outpatient (CLI) | payer OTHER ==
[~2019-03-30] VITALS: Ht 162.6 cm; Wt 82.1 kg
[2019-03-30 09:23] VITALS: BP 123/81
--- NOTE | 2019-03-30 09:41 | NUR ---
Pain Clinic Assessment: 1. History of Osteoarthritis: NONE History of Rheumatoid Arthritis: NONE 2. Height: 5 ft. 4 in. 162.6 cm. Weight: 181.0 lb. oz. 82.101 kg. Patient's BMI: 31.1 3. Vital Signs: BP: 123/81 Pulse: 82 Resp: 16 Temp: 02 Sat: 97 ECG Mon: 4. Pain Intensity: 10 5. Fall Risk: Dizziness: N Needs help standing or walking: N Fallen in the last 3 months: N Fall risk comments: 6. Patient on Blood Thinner: None 7. History of Hypertension: N 8. Opioid Therapy greater than 6 weeks: N Opiate Contract Signed: 9. Risk Assessment Tool Provided: low-1 10. Functional Assessment Tool: 11. Recreational Drug Use: Never Drug Type: Tobacco Use: Former Smoker Tobacco Type: Amount or Packs/day: How Many Years: Alcohol Use: Yes Frequency: Monthly Quant: 1-2
--- NOTE | 2019-04-13 08:40 | HPC ---
[facility] [place] [address] PAIN MANAGEMENT CONSULTATION Name: LUBNA KRISHNANHENRY ESPOSITO Room #: REG JACOBO [facility]#: [id number] Admission: 03/30/19 Attend Phys: Keshav Thapa MD Discharge: Date of : 60 Report #: [id number] THIS REPORT FOR: cc: Jayshree Almazan Beth RNP Brown, N. Wayne MD ~ THIS REPORT FOR: //name// CC: Jayshree Maradiaga DATE OF SERVICE: 03/30/2019 FOLLOWUP COMPLAINT: The low back and leg pain has returned. HISTORY: The patient is a 58-year-old female who has been seen in the pain clinic because of lumbar radiculopathy. She has undergone epidural steroid injections in the past. She returns today because of pain in the low back, which is radiating down into her right buttocks and down into both of her feet. Right side is the most problematic. Notes a burning, tingling, aching sensation. Rates her pain intensity as a 10/10 today. Standing exacerbates the pain. Walking makes it worse. She notes that rest, heat and lying down as well as medications can improve her condition. She has had no complications from previous injections. There is no problem with her bowel or bladder function. She returns today and would like to undergo another epidural steroid injection to help decrease her pain and discomfort. ALLERGIES: CODEINE, HYDROCODONE, OXYCODONE. CURRENT MEDICATIONS: Bupropion SR 150 mg, Celebrex 200 mg 2 times daily, eszopiclone 2 mg at bedtime, phentermine 37.5 mg, ophthalmic drops b.i.d., magnesium 400 mg, potassium 500 granules, Cymbalta 60 mg, azelastine 137 mcg nasal spray, esomeprazole 40 mg, Nexium 40 mg, Holley 180 mg, tramadol 50 mg. PAIN CLINIC ASSESSMENT AND PQRS: 1. The patient is not being treated for osteoarthritis or rheumatoid arthritis. 2. Height 5 feet 4 inches, weight 180 pounds, BMI 31. 3. Vital signs. Blood pressure 123/80, pulse 82, respiratory rate 16, room air saturation 97%. 4. Pain intensity, 10. 5. Fall history. The patient has not fallen in the last 3 months. 6. Blood thinner. The patient is not on a blood thinning medication. 7. Hypertension. The patient is not being treated for hypertension. 8. Opioids greater than 6 weeks. The patient is not on a [place] [address] PAIN MANAGEMENT CONSULTATION Name: LUBNA KRISHNANSCILLA [facility] Room #: REG JACOBO Valles#: [id number] Admission: 03/30/19 Attend Phys: Keshav Thapa MD Discharge: Date of : 60 Report #: [id number] 9. Risk assessment tool, low for opioids. 10. Functional assessment tool, . 11. Recreational drug use. The patient denies. 12. Tobacco. The patient is a former smoker. 13. Alcohol. The patient occasionally drinks 1-2 alcoholic beverages. PHYSICAL EXAMINATION: GENERAL: The patient is a well-developed, well-nourished, white female. Appears her stated age. She is alert and oriented x 3. Her affect is appropriate. Speech is fluent. HEENT: Normocephalic, atraumatic. Extraocular eye muscles intact. Sclerae nonicteric. Mucous membranes are moist. NECK: Without adenopathy or JVD. HEART: Regular rate. ABDOMEN: Nontender. EXTREMITIES: Upper extremity muscle strength judged to be 5/5 for the major muscle groups in the upper extremity. MUSCULOSKELETAL: The patient without significant scoliosis, kyphosis, or lordosis. The patient has pain and discomfort that is radiating in the lower portion of her back with pain radiating down to the left leg as well as in the right leg. Left side is more problematic. The patient has episodes of numbness, tingling, weakness associated with the pain in the L5-S1 dermatomal distribution. IMPRESSION: 1. Lumbar radiculopathy with L5-S1 dermatomal distribution, more problematic on the left. 2. Depression. 3. History of lumbar radiculopathy. 4. History of gastroesophageal reflux. 5. Emotional stress secondary to her 's coronary artery bypass history. RECOMMENDATIONS: We discussed treatment options with the patient. Risks and benefits of an epidural steroid injection were again discussed. They include but are not limited to infection, worsening of pain, no improvement in pain, nerve damage, spinal headache and the patient elects to proceed. PROCEDURE NOTE: The patient was taken to the procedure area. She was then assisted in getting on the examination table. Her back was sterilely prepped with a Betadine solution. A 0.25% bupivacaine was infiltrated at the L5-S1 area. After this area had been anesthetized, a 17-gauge Tuohy with loss of resistance technique was then advanced at the L5-S1 area. A 0.25% bupivacaine was again added. The epidural space was identified. There was no CSF, heme or paresthesia. A total of 80 mg Depo-Medrol, 40 mg triamcinolone and 2 mL of 0.25% bupivacaine was injected. The patient tolerated the procedure well. There were no complications. She remained in the pain clinic for an appropriate [facility] [address] [place] [address] PAIN MANAGEMENT CONSULTATION Name: JIM KRISHNAN Room #: REG JACOBO Valles#: [id number] Admission: 03/30/19 Attend Phys: Keshav Thapa MD Discharge: Date of : 60 Report #: [id number] amount of time. She will follow up in the future as needed. Hopefully, her continues to make a good recovery from his coronary artery bypass history. <ELECTRONICALLY SIGNED> By: Keshav Thapa MD 04/13/19 0840 [id number] Keshav Thapa MD /PMT
== END ==
LOC: PAIN 06:39
DX: M54.16 Radiculopathy, lumbar region (principal); G89.29 Other chronic pain; Z98.890 Other specified postprocedural states; Z79.899 Other long term (current) drug therapy; Z88.8 Allergy status to other drugs, medicaments and biological substances; Z87.891 Personal history of nicotine dependence; Z88.6 Allergy status to analgesic agent

== ENCOUNTER → 2019-05-04 | Outpatient (CLI) | payer OTHER ==
[~2019-05-04] VITALS: Ht 162.6 cm; Wt 82.6 kg
--- NOTE | ~2019-05-04 | HPC ---
[facility] [place] [address] PAIN MANAGEMENT CONSULTATION Name: JIM KRISHNAN VAIBHAV Room #: REG JACOBO Otoniel.Jaki.#: [id number] Admission: 05/04/19 Attend Phys: Keshav Thapa MD Discharge: Date of : 60 Report #: [id number] THIS REPORT FOR: cc: Jayshree Almazan Beth RNP Brown, N. Wayne MD ~ CC: Jayshree Maradiaga DATE OF SERVICE: 05/04/2019 CHIEF COMPLAINT: Pain doing relatively well over the last week has increased. HISTORY: The patient is a 58-year-old female who has been followed in the pain clinic. She has had pains in her low back with radiation down into her legs. She also has pain in her left shoulder, which goes down her neck and has caused some headache discomfort. At this juncture, she has noticed that the pain in the low back area is more problematic. She underwent an epidural steroid injection with almost total resolution of her pain. She has returned today with hopes of undergoing another epidural steroid injection to build on the benefits of epidural steroid injections in the past. She has not noticed any change in bowel or bladder function. She has found the injections efficacious and would like to proceed with another injection at this juncture. ALLERGIES: CODEINE, HYDROCODONE/OXYCODONE. CURRENT MEDICATIONS: Bupropion SR 150 mg, Celebrex 200 mg 2 times daily, eszopiclone 2 mg at bedtime, phentermine 37.5 mg, ophthalmic drops b.i.d., magnesium 400 mg, potassium, Cymbalta 60 mg, azelastine 137 mcg nasal spray, esomeprazole 40 mg, Nexium 40 mg, Holley 180 mg, and tramadol 50 mg. PAIN CLINIC ASSESSMENT AND PQRS: 1. The patient is not being treated for osteoarthritis or rheumatoid arthritis. 2. Height 5 feet 4 inches, weight 182 pounds, BMI is 31.3. 3. Vital Signs: Blood pressure 139/74, pulse 81, respiratory rate 18, room air saturation 93%. 4. Pain intensity 10/14. 5. Fall history: The patient has not fallen in the last 3 months. 6. Blood thinner. The patient is not on a blood thinning medication. 7. Hypertension. The patient is not being treated for hypertension. 8. Opioids greater than 6 weeks. The patient received medication from one source, the pain clinic. 9. Risk assessment tool, low for opioid use. 10. Functional assessment tool 42/. 11. Recreational drugs: The patient denies. [address] [address] PAIN MANAGEMENT CONSULTATION Name: JIM KRISHNAN [facility] Room #: REG CL M..#: [id number] Admission: 05/04/19 Attend Phys: Keshav Thapa MD Discharge: Date of : 60 Report #: [id number] 12. Tobacco: The patient is a former smoker. 13. Alcohol: The patient occasionally drinks alcoholic beverages. PHYSICAL EXAMINATION: GENERAL: The patient is a well-developed, well-nourished white female. Appears her stated age. She is alert and oriented x 3. Her affect is appropriate. Speech is fluent. HEENT: Normocephalic, atraumatic. Extraocular eye muscles intact. Sclerae nonicteric. Mucous membranes are moist. NECK: Without adenopathy or JVD. HEART: Regular rate. EXTREMITIES: Upper extremity muscle strength judged to be 5/5 for the major muscle groups in the upper extremity. The patient without significant scoliosis, kyphosis or lordosis. The patient has some pain and discomfort in the lower portion of her back, which radiates down into her left leg and into the right leg. She notes some numbness and tingling associated with dermatomal sensory changes. IMPRESSION: 1. Lumbar radiculopathy, L4-L5 with pain radiating down the left and the right. 2. Depression. 3. History of lumbar ____ improvement with epidural steroid injections. 4. History of gastroesophageal reflux. RECOMMENDATIONS: We discussed treatment options with the patient. Risks and benefits of an epidural steroid injection were again discussed. Possible complications of the procedure, which could include but are not limited to infection, worsening pain, muscle soreness, spinal headache, nerve damage and the patient elects to proceed. PROCEDURE NOTE: The patient was taken to the procedure area. She was then assisted in getting on examination table. Her back was sterilely prepped with a Betadine solution at the L4-L5 area. A 0.25% bupivacaine was infiltrated. A 17-gauge Tuohy with loss of resistance technique was used to gain access to the midline area at L4-L5. After this area had been anesthetized. A total of 80 mg Depo-Medrol, 40 mg triamcinolone and 2 mL of 0.25% bupivacaine was injected. The patient's pain decreased to 0 at the time of discharge. A total of 12 seconds fluoroscopy time was used. We would like to thank you for letting us participate in her care. We hope she continues to improve. By: [id number] Thapa MD /nt
[2019-05-04 13:22] VITALS: BP 139/74
--- NOTE | 2019-05-04 13:27 | NUR ---
Pain Clinic Assessment: 1. History of Osteoarthritis: NONE History of Rheumatoid Arthritis: NONE 2. Height: 5 ft. 4 in. 162.6 cm. Weight: 182.2 lb. oz. 82.645 kg. Patient's BMI: 31.3 3. Vital Signs: BP: 139/74 Pulse: 81 Resp: 18 Temp: 02 Sat: 93 ECG Mon: 4. Pain Intensity: 8 5. Fall Risk: Dizziness: N Needs help standing or walking: N Fallen in the last 3 months: N Fall risk comments: 6. Patient on Blood Thinner: None 7. History of Hypertension: N 8. Opioid Therapy greater than 6 weeks: N Opiate Contract Signed: 9. Risk Assessment Tool Provided: low-1 10. Functional Assessment Tool: 11. Recreational Drug Use: Never Drug Type: Tobacco Use: Former Smoker Tobacco Type: Amount or Packs/day: How Many Years: Alcohol Use: Yes Frequency: Quant:
== END | disposition home or self-care (01) ==
LOC: PAIN 06:53
DX: M54.16 Radiculopathy, lumbar region (principal); G89.29 Other chronic pain; F32.9 Major depressive disorder, single episode, unspecified; K21.9 Gastro-esophageal reflux disease without esophagitis; Z98.890 Other specified postprocedural states; Z88.8 Allergy status to other drugs, medicaments and biological substances; Z79.899 Other long term (current) drug therapy; Z87.891 Personal history of nicotine dependence

== ENCOUNTER → 2019-06-27 | Outpatient (CLI) | payer OTHER ==
[~2019-06-27] VITALS: Ht 162.6 cm; Wt 84.2 kg
[~2019-06-27] MED LIST changes: +ADVIL200 M1 PO; +TRULANCE3 MG PO
[2019-06-27 08:25] VITALS: BP 128/76
--- NOTE | 2019-06-27 08:36 | NUR ---
Pain Clinic Assessment: 1. History of Osteoarthritis: NONE History of Rheumatoid Arthritis: NONE 2. Height: 5 ft. 4 in. 162.6 cm. Weight: 185.6 lb. oz. 84.188 kg. Patient's BMI: 31.8 3. Vital Signs: BP: 128/76 Pulse: 81 Resp: 16 Temp: 02 Sat: 100 ECG Mon: 4. Pain Intensity: 10 5. Fall Risk: Dizziness: N Needs help standing or walking: N Fallen in the last 3 months: N Fall risk comments: 6. Patient on Blood Thinner: None 7. History of Hypertension: N 8. Opioid Therapy greater than 6 weeks: N Opiate Contract Signed: 9. Risk Assessment Tool Provided: low-1 10. Functional Assessment Tool: 11. Recreational Drug Use: Never Drug Type: Tobacco Use: Former Smoker Tobacco Type: Amount or Packs/day: How Many Years: Alcohol Use: Yes Frequency: Quant:
--- NOTE | 2019-07-04 08:03 | HPC ---
[facility] [place] [address] PAIN MANAGEMENT CONSULTATION Name: JIM KRISHNAN VAIBHAV Room #: REG JACOBO Hai#: [id number] Admission: 06/27/19 Attend Phys: Keshav Thapa MD Discharge: Date of : 60 Report #: [id number] THIS REPORT FOR: cc: Jayshree Almazan Beth RNP Brown, N. Wayne MD ~ CC: Jayshree Thapa DATE OF SERVICE: 06/27/2019 CHIEF COMPLAINT: The pain was much improved after last injection, but now has returned. I would like to undergo another injection. HISTORY: The patient is a 59-year-old female who has been followed in the pain clinic because of lumbar radiculopathy. She has undergone epidural steroid injections and found them beneficial. At this juncture, her pain has become quite significant. She is walking with a limp. She is unable to engage in activities of daily living because of the increased pain and discomfort. She has returned with the hopes of undergoing an epidural steroid injection. She is aware of the COVID-19 infection/pandemic that is ongoing. Her pain at this point is causing such a problem with her activities of daily living she feels that it is worth having an injection. She is aware of the possible complications. ALLERGIES: CODEINE, HYDROCODONE/OXYCODONE. CURRENT MEDICATIONS: Bupropion SR 150 mg, Celebrex 200 mg 2 times daily, eszopiclone 2 mg at bedtime, phentermine 37.5 mg, ophthalmic drops b.i.d., magnesium 400 mg, potassium, Cymbalta 60 mg, azelastine 137 mcg nasal spray, esomeprazole 40 mg, Nexium 40 mg, Holley 180 mg, tramadol 50 mg. PAIN CLINIC ASSESSMENT AND PQRS: 1. The patient is not being treated for osteoarthritis or rheumatoid arthritis. 2. Height 5 feet 4 inches, weight 185 pounds, BMI is 31.5. 3. Vital Signs: Blood pressure 128/76, pulse 81, respiratory rate 16, room air saturation is 100%. 4. Pain intensity: ____. 5. Fall Risk: The patient has not fallen in the last 3 months. 6. Blood thinner: The patient is not on a blood thinning medication. 7. Hypertension: The patient is not being treated for hypertension. 8. Opioids greater than 6 weeks: The patient is not receiving medications. 9. Risk assessment tool: Low for opioid use. 10. Functional assessment tool: 42/70. 11. Recreational drug use: The patient denies. [address] [address] PAIN MANAGEMENT CONSULTATION Name: JIM KRISHNAN [facility] Room #: REG CL M.R.#: [id number] Admission: 06/27/19 Attend Phys: Keshav Thapa MD Discharge: Date of : 60 Report #: [id number] 12. Alcohol: The patient denies except on rare occasion. 13. Tobacco: The patient denies. PHYSICAL EXAMINATION: GENERAL: The patient is a well-developed, well-nourished white female. Appears her stated age. She is alert and oriented x 3. Her affect is appropriate. Speech is fluent. HEENT: Normocephalic, atraumatic. Extraocular eye muscles intact. Sclerae nonicteric. Mucous membranes are moist. NECK: Without adenopathy or JVD. HEART: Regular rate. EXTREMITIES: Upper extremity muscle strength judged to be 5/5 for the major muscle groups in the upper extremity. The patient without significant scoliosis, kyphosis or lordosis. The patient has pain and discomfort in the lower portion of her back with pain that is radiating down into the L4-L5 dermatomal distribution with numbness and tingling associated with that dermatomal area and pain most problematic on the left side. IMPRESSION: 1. Lumbar radiculopathy, L4-L5 with pain radiating into the left and the right. 2. Depression. 3. History of lumbar pain improved with epidural steroid injection by 80% -90%. 4. History of gastroesophageal reflux. RECOMMENDATIONS: We discussed treatment options with the patient. Risks and benefits of an epidural steroid injection were discussed. Possible complications of the procedure, which could include but are not limited to infection, worsening of pain, no improvement in pain, nerve damage. PROCEDURE NOTE: The patient was taken to the procedure area. She was then assisted in getting on the examination table. A pillow was placed under the abdomen to bolster and improve positioning. Fluoroscopy using anterior, posterior as well as lateral viewing were implemented. A total of 80 mg Depo-Medrol, 40 mg triamcinolone were injected at the L4-L5 area after it had been anesthetized and infiltrated with 0.25% bupivacaine. The patient tolerated the procedure well. A total of about 15 seconds fluoroscopy time was used. The patient remained in the pain clinic for an appropriate amount of time. She will follow up in the future as needed. Pain decreased from 10 to 5 at the time of discharge. We would like to thank you for letting us participate in her care. We hope she continues to improve. <ELECTRONICALLY SIGNED> By: Keshav Thapa MD 07/04/19 [id number] MD conner Parker
== END | disposition home or self-care (01) ==
LOC: PAIN 06:43
DX: M54.16 Radiculopathy, lumbar region (principal); G89.29 Other chronic pain; F32.9 Major depressive disorder, single episode, unspecified; K21.9 Gastro-esophageal reflux disease without esophagitis; Z98.890 Other specified postprocedural states; Z79.899 Other long term (current) drug therapy; Z87.891 Personal history of nicotine dependence; Z88.8 Allergy status to other drugs, medicaments and biological substances

== ENCOUNTER → 2019-07-27 | Outpatient (CLI) | payer OTHER ==
[~2019-07-27] VITALS: Ht 162.6 cm; Wt 86.5 kg
[~2019-07-27] MED LIST changes: +AMITRIPTYLINE H10 M3 PO
[2019-07-27 09:26] VITALS: BP 153/80
--- NOTE | 2019-07-27 09:30 | NUR ---
Pain Clinic Assessment: 1. History of Osteoarthritis: NONE History of Rheumatoid Arthritis: NONE 2. Height: 5 ft. 4 in. 162.6 cm. Weight: 190.6 lb. oz. 86.456 kg. Patient's BMI: 32.7 3. Vital Signs: BP: 153/80 Pulse: 85 Resp: 16 Temp: 02 Sat: 96 ECG Mon: 4. Pain Intensity: 8 5. Fall Risk: Dizziness: N Needs help standing or walking: N Fallen in the last 3 months: N Fall risk comments: 6. Patient on Blood Thinner: None 7. History of Hypertension: N 8. Opioid Therapy greater than 6 weeks: N Opiate Contract Signed: 9. Risk Assessment Tool Provided: low-1 10. Functional Assessment Tool: 11. Recreational Drug Use: Never Drug Type: Tobacco Use: Former Smoker Tobacco Type: Amount or Packs/day: How Many Years: Alcohol Use: Yes Frequency: Quant:
== END | disposition home or self-care (01) ==
LOC: PAIN 06:50
DX: M54.16 Radiculopathy, lumbar region (principal); G89.29 Other chronic pain; F32.9 Major depressive disorder, single episode, unspecified; Z98.890 Other specified postprocedural states; Z79.899 Other long term (current) drug therapy

== ENCOUNTER → 2019-08-20 | Outpatient (CLI) | payer OTHER | LOC: MRI 07:15 | PROVIDERS: ATTEND Family Medicine | DX: M47.817 Spondylosis without myelopathy or radiculopathy, lumbosacral region (principal); M25.48 Effusion, other site; M51.26 Other intervertebral disc displacement, lumbar region; M71.38 Other bursal cyst, other site; M48.061 Spinal stenosis, lumbar region without neurogenic claudication ==

== ENCOUNTER → 2019-09-12 | Outpatient (CLI) | payer OTHER | LOC: RAD 11:55 | PROVIDERS: ATTEND Neurological Surgery | DX: M43.17 Spondylolisthesis, lumbosacral region (principal); M54.9 Dorsalgia, unspecified; Z90.49 Acquired absence of other specified parts of digestive tract ==

== ENCOUNTER → 2020-01-14 | Outpatient (CLI) | payer OTHER | LOC: RAD 12:08 | PROVIDERS: ATTEND Neurological Surgery | DX: M43.26 Fusion of spine, lumbar region (principal) ==

== ENCOUNTER → 2020-05-27 | Outpatient (CLI) | payer OTHER | LOC: LAB 08:16 | PROVIDERS: ATTEND Nurse Practitioner | DX: R21 Rash and other nonspecific skin eruption (principal) ==

== ENCOUNTER → 2020-06-02 | Outpatient (CLI) | payer OTHER ==
[2020-06-02 16:38] LABS: ABSOLUTE NEUTROPHILS 3.6 thou/uL (1.4-8.2); HEMOGLOBIN 14.3 gm/dL (12.0-15.0); PLATELET COUNT 239 thou/uL (150-400)
[2020-06-02 16:40] LABS: BASOPHILS 1.5 % (0.0-2.0); EOSINOPHILS 8.3 % (0.0-3.0); HEMATOCRIT 44.1 % (37.0-47.0); LYMPHOCYTES 25.3 % (24.0-44.0); MCH 30.6 pg (26.0-34.0); MCHC 32.5 g/dL (28.0-37.0); MONOCYTES 8.6 % (1.0-8.0); POLYS 56.3 % (36.0-66.0); RBC 4.69 mil/uL (4.20-5.00); RDW 13.9 % (10.5-14.5); WBC 6.5 thou/uL (4.0-11.0)
[2020-06-02 16:51] LABS: ALBUMIN 3.7 g/dL (3.4-5.0); ANION GAP 9 mmol/L (7-16); BUN 15 mg/dL (7-18); CHLORIDE 101 mmol/L (98-107); CO2 29 mmol/L (21-32); GLUCOSE 115 mg/dL (74-106); POTASSIUM 3.7 mmol/L (3.5-5.1); SGOT 18 U/L (15-37); SGPT 24 U/L (30-65); SODIUM 139 mmol/L (136-145); TOTAL BILIRUBIN 0.4 mg/dL (0.2-1.0); TOTAL PROTEIN 7.5 g/dL (6.4-8.2)
== END ==
LOC: LAB 15:59
PROVIDERS: ATTEND Nurse Practitioner Family
DX: M35.00 Sjogren syndrome, unspecified (principal); L65.9 Nonscarring hair loss, unspecified

== ENCOUNTER → 2020-06-23 | Outpatient (CLI) | payer OTHER | LOC: LAB 07:37 | PROVIDERS: ATTEND Nurse Practitioner Family | DX: L65.9 Nonscarring hair loss, unspecified (principal); M35.00 Sjogren syndrome, unspecified ==

== ENCOUNTER → 2020-06-25 | Outpatient (CLI) | payer OTHER ==
[2020-06-26 01:06] LABS: T4 (THYROXINE) 4.6 ug/dL (4.5-12.0)
== END ==
LOC: LAB 14:09
PROVIDERS: ATTEND Nurse Practitioner
DX: R79.89 Other specified abnormal findings of blood chemistry (principal)

== ENCOUNTER → 2020-08-19 | Outpatient (CLI) | payer OTHER | LOC: MRI 07:39 | DX: I67.1 Cerebral aneurysm, nonruptured (principal) ==

== ENCOUNTER → 2020-08-25 | Outpatient (CLI) | payer OTHER ==
[2020-08-25 23:06] LABS: TESTOSTERONE* < 3 ng/dL (4-50)
== END ==
LOC: LAB 12:07
PROVIDERS: ATTEND Obstetrics & Gynecology
DX: N95.1 Menopausal and female climacteric states (principal); R68.82 Decreased libido

== ENCOUNTER → 2020-08-27 | Outpatient (CLI) | payer OTHER | LOC: LAB 08:12 | PROVIDERS: ATTEND Internal Medicine Endocrinology, Diabetes & Metabolism | DX: E03.9 Hypothyroidism, unspecified (principal) ==

== ENCOUNTER → 2020-12-15 | Outpatient (CLI) | payer OTHER ==
[2020-12-15 12:34] LABS: ABSOLUTE NEUTROPHILS 5.4 thou/uL (1.4-8.2); BASOPHILS 0.4 % (0.0-2.0); EOSINOPHILS 0.1 % (0.0-3.0); HEMOGLOBIN 14.1 gm/dL (12.0-15.0); LYMPHOCYTES 10.4 % (24.0-44.0); MCH 31.5 pg (26.0-34.0); MCHC 33.6 g/dL (28.0-37.0); MCV 93.8 fL (80.0-100.0); MONOCYTES 1.4 % (1.0-8.0); PLATELET COUNT 220 thou/uL (150-400); POLYS 87.7 % (36.0-66.0); RBC 4.47 mil/uL (4.20-5.00); RDW 12.6 % (10.5-14.5); WBC 6.1 thou/uL (4.0-11.0)
[2020-12-15 12:57] LABS: ALBUMIN 3.7 g/dL (3.4-5.0); CALCIUM 9.1 mg/dL (8.5-10.1); CREATININE 1.1 mg/dL (0.6-1.0); POTASSIUM 4.3 mmol/L (3.5-5.1); TOTAL BILIRUBIN 0.2 mg/dL (0.2-1.0); TOTAL PROTEIN 7.7 g/dL (6.4-8.2)
== END ==
LOC: LAB 11:46
PROVIDERS: ATTEND Otolaryngology Plastic Surgery within the Head & Neck
DX: C44.91 Basal cell carcinoma of skin, unspecified (principal); K13.0 Diseases of lips; Z91.89 Other specified personal risk factors, not elsewhere classified; Z79.82 Long term (current) use of aspirin; Z87.891 Personal history of nicotine dependence

== ENCOUNTER → 2021-02-18 | Outpatient (CLI) | payer OTHER | LOC: MRI 01-23 09:59 | PROVIDERS: ATTEND Nurse Practitioner | DX: M43.16 Spondylolisthesis, lumbar region (principal); M54.2 Cervicalgia; M54.50 Low back pain, unspecified ==

== ENCOUNTER → 2021-04-08 | Outpatient (CLI) | payer OTHER ==
[2021-04-08 12:18] LABS: CHOLESTEROL 157 mg/dL (<200); HDL CHOLESTEROL 54 mg/dL (>40); LDL CHOLESTEROL 84 mg/dL (<100); TC:HDL 2.9 Ratio (Not establshd); TRIGLYCERIDE 95 mg/dL (<150); VLDL 19 mg/dL (<40)
== END ==
LOC: LAB 10:52
PROVIDERS: ATTEND Nurse Practitioner Family
DX: E07.9 Disorder of thyroid, unspecified (principal); M35.00 Sjogren syndrome, unspecified; E78.5 Hyperlipidemia, unspecified; E03.9 Hypothyroidism, unspecified; E06.3 Autoimmune thyroiditis